=== PATIENT | male | born 1950 | race Caucasian/White ===

== ENCOUNTER 2021-03-02 05:53 | Outpatient (CLI) | payer MEDICARE, OTHER, SELFPAY ==
--- NOTE | 2021-03-02 06:08 | W.ED.GENADLT ---
HPI - General Adult History of Present Illness: HPI narrative: This patient is a 71-year-old male who presents to the emergency department with complaint of Covid-like symptoms. Patient was seen locally in the clinic yesterday and diagnosed with Covid on nasal swab. Patient's only complaint is some mild cough some body aches. Patient had vaccine in August of this year. Patient was set up for monoclonal antibody infusion today and presented to the ER for an outpatient infusion. Patient has no fever O2 sat on room air is 99%. Patient will have monoclonal low antibody infusion as ordered. Associated symptoms: Deny chest pain, dyspnea, headache(s), nausea, rash, palpitations or vomiting Review of Systems General: Reports: 10 or more systems reviewed and unremarkable except in HPI and below Const: Reports: body aches; Denies: fever(s), chills or fatigue Eyes: Denies: change in vision or blurry vision ENMT: Denies: throat pain, hoarseness or mouth pain Card: Denies: chest pain, palpitations, irregular heart rhythm, edema, swelling of feet/ankles or lightheadedness Resp: Reports: non-productive cough; Denies: dyspnea, productive cough, wheezing or pain on inspiration GI: Denies: abdominal pain, nausea or vomiting : Denies: flank pain, dysuria, urinary frequency, urinary urgency or urinary hesitancy Musc: Denies: neck pain, back pain, extremity pain, extremity swelling, joint pain, joint swelling, joint redness, joint warmth or limited range of motion Skin/Breast: Denies: rash, pruritus, erythema or skin tenderness Neuro: Denies: headache(s), numbness in extremities or weakness in extremities Psych: Denies: anxiety or depression Physical Exam Const: COMMON NORMALS: no acute distress, average body habitus, patient oriented x3, no limitations, healthy appearing, alert and well nourished HENMT: COMMON NORMALS: normocephalic, atraumatic, hearing grossly normal bilaterally, external ears normal, EAC's normal, TM's normal bilaterally, Normal external nose present, Normal nasal mucous membranes and turbinates present, moist oral mucous membranes, oropharynx normal, dentition normal and gingiva normal HEAD & SCALP: normocephalic and atraumatic NOSE: Normal external nose present and Normal nasal mucous membranes and turbinates present EXTERNAL EAR: Yes external ears normal EXTERNAL AUDITORY CANAL: EAC's normal TYMPANIC MEMBRANE: TM's normal bilaterally Neck/C-Spine: COMMON NORMALS: full ROM, no lymphadenopathy, supple, no meningeal signs, no JVD, Thyroid normal and No carotid bruits THYROID: Thyroid normal Chest: COMMONS NORMALS: normal inspection of the chest, normal palpation of entire chest wall, normal inspection of the breasts and normal palpation of the breasts Breast/axilla inspection: Yes normal inspection of the breasts BREAST/AXILLA PALPATION: Yes normal palpation of the breasts Resp: COMMON NORMALS: normal respiratory effort, No retractions, No use of accessory muscles, clear to auscultation bilaterally and percussion normal AUSCULTATION: clear to auscultation bilaterally PERCUSSION: percussion normal Cardio: COMMON NORMALS: no JVD, regular rate, regular rhythm, S1 normal heart sound present, S2 normal heart sound present, No gallops present (Cardio), No clicks present (Cardio), No murmurs present (Cardio), No rub (Cardio) and Peripheral pulses 2+ throughout RATE: regular rate RHYTHM: regular rhythm HEART SOUNDS: S1 normal heart sound present and S2 normal heart sound present PERIPHERAL PULSES: Peripheral pulses 2+ throughout GI: COMMON NORMALS: Normal to inspection, nondistended, normoactive bowel sounds present, Soft to palpation, non-tender, No hepatosplenomegaly present, no masses and no bruits PALPATION: Yes Soft to palpation and Yes No hepatosplenomegaly present : COMMON NORMALS: Yes no CVA tenderness BLADDER/KIDNEY EXAM: Yes no CVA tenderness Back/Pelvis: COMMON NORMALS: no CVA tenderness, thoracic and lumbar spine normal to inspection, no thoracic nor lumbar tenderness, thoraco-lumbar ROM normal and straight leg raise negative bilaterally Extremity: COMMON NORMALS: normal to inspection, full ROM, capillary refill normal, no joint enlargement, no clubbing, cyanosis or edema, no calf tenderness and no pedal edema Neuro: COMMON NORMALS: patient oriented x3 SENSORIUM/ORIENTATION: Yes alert MENINGEAL SIGNS: Yes no meningeal signs MDM - General Adult MDM Narrative: Medical decision making narrative: Monoclonal antibody infusion outpatient. Patient be discharged home after infusion. If no significant side effects. Discharge Plan Discharge Patient Disposition: Home Coding Level of Care Code ED [employer] for [employer]
[2021-03-02 06:18] VITALS: BP 148/88; PULSE 88; RESP 14; TEMP 36.9; O2SAT 98
[2021-03-02] MEDS: remdesivir 200 MG in sodium chloride 0.9% (100 ml) 100 ML 100 MG IV (07:18)
--- NOTE | 2021-03-07 13:35 | DCPLANNER ---
ed case manager had message that patient received the BAM infusion. ed case manager spoke with patient getting the infusion, director case asked patient how he was feeling. Patient stated that he was feeling great, wonderful, fine. Patient stated that he has no fever, no headaches. Before the infusion he was running a fever, he had aches and pains and he was coughing. Patient stated overall that he is feeling much better.
== END 2021-03-02 08:24 | disposition home or self-care (01) ==
PROVIDERS: Visit Provider Physician Assistant
DX: U07.1 COVID-19 (principal)
CPT/HCPCS: 96365

== ENCOUNTER 2021-06-29 14:38 | Outpatient (CLI) | payer MEDICARE, OTHER, SELFPAY ==
--- NOTE | 2021-06-29 14:55 | MR_ITS ---
WS: [id number] MRI LUMBAR SPINE NONCONTRAST TECHNIQUE: Sagittal T1, T2 and STIR imaging. Axial T1 and T2 imaging. CLINICAL INFORMATION: RIGHT LUMBAR RADICULOPATHY COMPARISON: None. FINDINGS: Mild lumbar curve. No acute compression. Moderate to severe central canal stenosis L5-S1. L1-L2: Normal. L2-L3: Mild annular bulging. Spinal canal and foramen are patent. Mild facet arthropathy. L3-L4: Mild annular bulging with slight effacement of the ventral thecal sac. Mild central canal sten osis. Moderate facet arthropathy. Mild left foraminal narrowing. L4-L5: Mild annular bulging with mild central canal stenosis. Narrowing of the subarticular recess bi laterally. Encroachment traversing L5 nerve roots. Small lobulated 8 mm left synovial cyst contribute s to left L5 nerve root impingement. Moderate facet arthropathy. Foramen are patent. L5-S1: Mild disc bulging with osteophytic ridging. Advanced facet arthropathy with ligamentum flavum flavum hypertrophy. Moderate to severe central canal stenosis with left to right narrowing of the the christina sac. Impingement on the traversing S1 nerve roots. Moderate right and mild left foraminal narrowi ng. Small left renal cysts. MR/MR lumbar spine wo con* [id number] IMPRESSION: 1. Moderate to severe central canal stenosis L5-S1 due to disc osteophyte comp mayi with advanced facet arthropathy and ligamentum flavum hypertrophy. Left to right narrowing of the thecal sac. 2. Moderate right and mild left L5-S1 foraminal narrowing. 3. Mild central canal stenosis L4-5 with impingement traversing L5 nerve roots . Small lobulated left synovial cyst measuring 8 mm contributes to left L5 nerv e root impingement. 4. Mild left L3-4 foraminal narrowing with mild central canal stenosis. 5. Moderate facet arthropathy L3-L4 and L4-L5 and advanced facet arthropathy L 5-S1.
== END 2021-06-29 14:39 | disposition home or self-care (01) ==
PROVIDERS: Visit Provider Internal Medicine
DX: M54.16 Radiculopathy, lumbar region (principal); M48.061 Spinal stenosis, lumbar region without neurogenic claudication; M25.78 Osteophyte, vertebrae; M47.816 Spondylosis without myelopathy or radiculopathy, lumbar region; M47.817 Spondylosis without myelopathy or radiculopathy, lumbosacral region
CPT/HCPCS: 72148

== ENCOUNTER 2022-02-09 14:24 | Outpatient (CLI) | payer MEDICARE, OTHER, SELFPAY ==
--- NOTE | 2022-02-09 14:38 | XR_ITS ---
WS: [id number] Lumbar spine, AP and lateral views, 02/09/2022 Clinical Data: LUMBAR RADICULOPATHY, SPINAL STENOSIS OF LUMBAR REGION Comparison: None. Findings: No compression fractures or subluxation is seen. No disc space narrowing is seen. The transverse proc esses and SI joints are normal. There is minimal osteoarthritic change from L1 through L3. There is a dextroscoliosis. Laminectomies at L4 and L5 are seen. There is facet joint arthritis at L5 -S1. There are calcifications overlying both kidneys. The abdominal aorta shows calcification but no aneurysm. XR/XR lumbar spine 2-3V* [id number] Impression: 1. Dextroscoliosis with minimal degenerative change of the L1-L3 vertebral bodi es. 2. Laminectomy at L4 and L5. 3. Probable bilateral renal calcifications.
== END 2022-02-09 14:25 | disposition home or self-care (01) ==
PROVIDERS: PCP Internal Medicine; Visit Provider Nurse Practitioner Family
DX: M54.16 Radiculopathy, lumbar region (principal); M48.061 Spinal stenosis, lumbar region without neurogenic claudication
CPT/HCPCS: 72100

== ENCOUNTER 2022-08-16 13:05 | Outpatient (CLI) | payer MEDICARE, OTHER, SELFPAY ==
--- NOTE | 2022-08-16 13:13 | MR_ITS ---
WS: [id number] MRI LUMBAR SPINE NONCONTRAST TECHNIQUE: Sagittal T1, T2 and STIR imaging. Axial T1 and T2 imaging. CLINICAL INFORMATION: LUMBAR STENOSIS/LUMBAR RADICULOPATHY COMPARISON: MRI June 29, 2021 FINDINGS: Mild lumbar curve. No acute compression. No high-grade central canal stenosis. Prior postoperative ch anges L4-L5 and L5-S1 laminectomies are new from previous. Spinal canal has been decompressed. Small incidental postoperative seroma in the laminectomy defects measuring 14 x 10 mm L4-L5 and 8 x 13 mm L 5-S1. No significant mass effect on the thecal sac. Otherwise normal expected postoperative changes i n the dorsal subcutaneous soft tissues. No other remarkable changes compared to previous. L1-L2: Mild facet arthropathy. Spinal canal and foramen are patent. L2-L3: no significant disc bulging. Mild RIGHT and no LEFT foraminal narrowing. Mild facet arthropath y. L3-L4: Mild annular bulging. Mild central canal stenosis. Slight narrowing of the subarticular recess bilaterally. Moderate facet arthropathy with ligamentum flavum hypertrophy. Mild LEFT greater than R IGHT foraminal narrowing. Mild central canal stenosis has minimally progressed. L4-L5: Interval postoperative changes dorsal laminectomy defects. Spinal canal is patent. Mild LEFT g reater than RIGHT foraminal narrowing. L5-S1: Dorsal laminectomy defects. Spinal canal has been decompressed. Moderate facet arthropathy. Mi ld bilateral foraminal narrowing due to eccentric disc osteophytic ridging. Partially visualized adrenal glands appear normal. Small LEFT renal cyst. MR/MR lumbar spine wo con* [id number] IMPRESSION: 1. Postoperative changes L4-L5 and L5-S1 decompressive laminectomy defects are new compared to previous. Central canal stenosis has been decompressed. No shannan dence of recurrent stenosis. 2. Mild central canal stenosis L3-L4 with slight narrowing of the subarticular recess. Moderate facet arthropathy with ligamentum flavum hypertrophy at this level. Minimal progression of central canal stenosis compared to previous. 3. No other remarkable interval changes. 4. Mild LEFT L3-L4 foraminal narrowing. 5. Mild bilateral L4-L5 and L5-S1 foraminal narrowing. 6. Moderate facet arthropathy L3-L5.
== END 2022-08-16 13:06 | disposition home or self-care (01) ==
LOC: RAD 13:05
PROVIDERS: PCP Internal Medicine; Visit Provider Surgery
DX: M48.061 Spinal stenosis, lumbar region without neurogenic claudication (principal); M54.16 Radiculopathy, lumbar region
CPT/HCPCS: 72148

== ENCOUNTER → 2023-02-23 11:19 | Outpatient (BNVA) | payer MEDICARE, OTHER, SELFPAY | PROVIDERS: PCP Internal Medicine; Visit Provider Podiatrist Foot & Ankle Surgery | DX: M72.2 Plantar fascial fibromatosis (principal); M21.6X1 Other acquired deformities of right foot; M21.6X2 Other acquired deformities of left foot | CPT/HCPCS: 20550; 73630; 99204; J1100; J3301 ==

== ENCOUNTER → 2023-03-15 11:11 | Outpatient (BNVA) | payer MEDICARE, OTHER, SELFPAY | PROVIDERS: PCP Internal Medicine; Visit Provider Podiatrist Foot & Ankle Surgery | DX: M72.2 Plantar fascial fibromatosis (principal); M21.6X1 Other acquired deformities of right foot; M21.6X2 Other acquired deformities of left foot | CPT/HCPCS: 99213 ==